=== PATIENT | male | born 1960 | race Caucasian/White ===

== ENCOUNTER → 2019-03-29 | Outpatient (CLI) | payer BC ==
--- NOTE | 2019-03-29 16:48 | PCVCIMAG ---
APPROVED REPORT Study performed: 03/29/2019 14:37:07 Exam: Stress Echocardiogram Indication: ABN EKG, LVH, htn Patient Location: Echo lab Stress Nurse: Delmi Al RN Status: routine Ht: 6 ft 0 in HR: 74 bpm BP: 154/82 mmHg Rhythm: NSR Procedure The patient underwent an Exercise Stress Test using the Robert Protocol. Blood pressure, heart rate, and EKG were monitored. An Echocardiogram was performed by model technician in four stages in quad fashion. At peak stress, four selected images were obtained and placed side by side with resting images for comparison. Stress Test Details Stress Test: Exercise stress testing was performed using a Robert protocol. HR Resting HR: 74 bpmMax Heart Rate (APMHR): 160 bpm Max HR Achieved: 157 bpmTarget HR (85% APMHR): 136 bpm % of APMHR: 98 Recovery HR: 108 bpm HR response to stress: Normal HR response to stress BP Resting BP: 154/82 mmHg Max BP: 220/84 mmHg Recovery BP: 168/80 mmHg BP response to stress: Normal blood pressure response to stress. ECG Resting ECG: Sinus Rhythm Stress ECG: Sinus Rhythm ST Change: ischemic ST depression lateral and inferior leads Maximum ST Deviation: -3 mm Arrhythmia: occasional isolated and couplet PVCs Recovery ECG: Sinus Rhythm Recovery ST Change: ischemic ST depression lateral and inferior leads Recovery Arrhythmia: None Clinical Reason for Termination: Maximal effort Stress Symptoms: Dyspnea Exercise duration: 9 min 55 sec Highest Stage Achieved: Stage 4: 4.2 mph at 16% grade. Exercise capacity: 13 METs Overall Exercise Capacity for Age: Normal Scale: Active Angina Score: None Stress ECG Conclusion Mcghee Treadmill Score is 24.0 which is Low risk. Pre-Stress Echo The resting Echocardiogram showed normal left ventricular contractility with an estimated Ejection Fraction of about >55%. The resting echocardiogram demonstrated normal wall motion in all wall segments. Post-Stress Echo The stress Echocardiogram showed normal left ventricular contractility with an estimated Ejection Fraction of about 65-70%. Compared to rest, there were no stress-induced wall motion abnormalities. Clinical No clinical or evidence for ischemia. False positive EKG. Conclusion Clinical Response: Non-ischemic Exercise Capacity: Average Stress ECG Response: Ischemic- similar to previous false positive stress EKG confirmed by non occlusive cath in 2013 Stress Echo Images: Non-ischemic The left ventricle is normal in size and mild-mod LVH in both the rest and stress images. Other Information Study Quality: Adequate <Conclusion> The left ventricle is normal in size and mild-mod LVH in both the rest and stress images.
== END | disposition home or self-care (01) ==
LOC: PCVCIMAG 15:05
PROVIDERS: ATTEND Internal Medicine Cardiovascular Disease
DX: I25.10 Atherosclerotic heart disease of native coronary artery without angina pectoris (principal); I11.9 Hypertensive heart disease without heart failure; E78.00 Pure hypercholesterolemia, unspecified; Z87.898 Personal history of other specified conditions; Z82.49 Family history of ischemic heart disease and other diseases of the circulatory system; Z72.89 Other problems related to lifestyle; Z88.8 Allergy status to other drugs, medicaments and biological substances
CPT/HCPCS: 93351